=== PATIENT | female | born 1950 | race Caucasian/White ===

== ENCOUNTER 2020-12-04 12:48 | Observation (INO) ==
[2020-12-04 14:57] LABS: Basophils % 0.4 % (0.0-0.8); Eosinophils # 0.1 10*3/uL (0.0-0.87); Eosinophils % 1.2 % (0.00-10.9); Hematocrit 40.3 VOL% (35.7-47.0); Hemoglobin 13.2 GM/DL (12.0-16.0); Immature Granulocytes % 0.5 %; Immature Granulocytes Absolute 0.03 #; Lymphocytes # 1.4 10*3/uL (1.4-4.0); Lymphocytes % 24.9 % (21.3-54.2); Mean Corpuscular HGB Conc 32.8 GM/DL (32-36); Mean Corpuscular Volume 86.1 FL (87-102); Mean Platelet Volume 9.6 FL (9.6-12.0); Platelet Count 327 T/CUMM (130-400); Red Blood Count 4.68 MC/CUMM (3.8-5.5); White Blood Count 5.7 T/CUMM (4-12)
[2020-12-04 15:08] LABS: Albumin 3.5 G/DL (3.4-5.0); Bilirubin,Total 0.4 MG/DL (0.2-1.0); Potassium 4.1 MMOL/L (3.5-5.1); Total Protein 6.6 G/DL (6.4-8.2)
[2020-12-04] MEDS ORDERED: hydrALAZINE 20 MG/1 ML VIAL IV PRN (15:23)
[2020-12-04] MEDS ORDERED: GLUCAGON 1 MG VIAL IM PRN (16:13)
[2020-12-04] MEDS ORDERED: ONDANSETRON 4 MG/2 ML VIAL IV PRN (16:13)
[2020-12-04] MEDS ORDERED: NITROGLYCERIN SL 0.4 MG TABLET SL PRN (16:13)
[2020-12-04] MEDS ORDERED: DEXTROSE 50% 25 GM/50 ML VIAL IV PRN (16:13)
[2020-12-04] MEDS ORDERED: ACETAMINOPHEN 325 MG TABLET PO PRN (16:13)
[2020-12-04] MEDS ORDERED: ENOXAPARIN 40 MG/0.4 ML SYRINGE SUBCUT SCH (16:30)
[2020-12-04 16:55] LABS: Risk Ratio 4.94; Thyroid Stimulating Hormone 2.55 uIU/ml (0.358-3.74); VLDL CHOLESTEROL 68.2 MG/DL
[2020-12-04] MEDS: INSULIN LISPRO 100 UNIT/ML SUBCUT SCH ×2 (17:29→20:55)
[2020-12-04] MEDS: LOSARTAN 25 MG TABLET PO SCH (17:30)
[2020-12-04] MEDS: carvediloL 3.125 MG TABLET PO SCH (20:52)
[2020-12-04] MEDS: DOCUSATE SODIUM 100 MG CAPSULE PO SCH (20:53)
[2020-12-04] MEDS: PANTOPRAZOLE 40 MG TABLET PO SCH (20:53)
[2020-12-04] MEDS ORDERED: tiZANidine 4 MG TABLET PO PRN (22:32)
[2020-12-04] MEDS: GABAPENTIN 600 MG TABLET PO SCH (22:47)
[2020-12-05 05:29] LABS: Basophils % 0.3 % (0.0-0.8); Eosinophils # 0.1 10*3/uL (0.0-0.87); Eosinophils % 1.1 % (0.00-10.9); Hematocrit 42.1 VOL% (35.7-47.0); Hemoglobin 13.5 GM/DL (12.0-16.0); Immature Granulocytes % 0.6 %; Immature Granulocytes Absolute 0.04 #; Lymphocytes # 1.2 10*3/uL (1.4-4.0); Lymphocytes % 17.1 % (21.3-54.2); Mean Corpuscular HGB Conc 32.1 GM/DL (32-36); Mean Corpuscular Volume 88.3 FL (87-102); Mean Platelet Volume 9.4 FL (9.6-12.0); Monocytes % 9.8 % (1.7-12.7); Neutrophils % 71.1 % (38.7-73.9); Platelet Count 277 T/CUMM (130-400); Red Blood Count 4.77 MC/CUMM (3.8-5.5); Red Cell Distribution Width 12.8 % (9.3-17.3)
[2020-12-05 05:49] LABS: Calcium 8.4 MG/DL (8.5-10.1); Osmolality,Calculated 273.4 MOS/KG (273-304)
[2020-12-05] MEDS: GABAPENTIN 600 MG TABLET PO SCH (08:33)
[2020-12-05] MEDS: LOSARTAN 25 MG TABLET PO SCH (08:33)
[2020-12-05] MEDS: carvediloL 3.125 MG TABLET PO SCH (08:33)
[2020-12-05] MEDS: PANTOPRAZOLE 40 MG TABLET PO SCH (08:33)
[2020-12-05] MEDS: DOCUSATE SODIUM 100 MG CAPSULE PO SCH (08:33)
[2020-12-05] MEDS: INSULIN LISPRO 100 UNIT/ML SUBCUT SCH ×2 (08:33→12:24)
[2020-12-05] MEDS ORDERED: MAGNESIUM SULF RIDER 4 GM in PREMIX 1 EACH IV PRN (11:09)
[2020-12-05] MEDS ORDERED: MAGNESIUM SULF RIDER 2 GM in PREMIX 1 EACH IV PRN (11:09)
[2020-12-05 12:08] VITALS: BP 144/66
== END 2020-12-05 13:55 | disposition home health service (06) ==
LOC: EDUNIT# → EDBD → N.EDINP 12:48 → N.ED 12:48 → N.EDINP 16:58 → N.TELEN 17:07
PROVIDERS: ADMIT Internal Medicine; ATTEND Internal Medicine